=== PATIENT | male | born 1950 | race Caucasian/White ===

== ENCOUNTER 2020-10-30 14:28 | Inpatient (IN) | payer MEDICARE, BC ==
[~2020-10-30] VITALS: Ht 167.6 cm; Wt 62.3 kg
[2020-10-30 15:09] LABS: BASO % 0.3 % (0.0-2.0); EOS # 0.2 (0.0-0.7); EOS % 3.5 % (0-4.0); GRAN # 3.8 (1.4-6.5); GRAN % 60.4 % (42.2-75.2); HEMOGLOBIN 10.8 g/dl (13.5-18.0); LYMPH # 1.2 (1.2-3.4); LYMPH % 18.6 % (20.0-51.0); MEAN CELL VOLUME 110 fl (80.0-100.0); MEAN CORPUSCULAR HEMOGLOBIN 37 pg (27.0-31.0); MEAN CORPUSCULAR HGB CONC 34 g/dl (33.0-37.0); MEAN PLATELET VOLUME 11.3 fl (7.4-10.4); MONO # 1.1 (0.1-0.6); MONO % 16.7 % (1.7-9.3); PLATELET COUNT 142 K/mm3 (130-400); RED BLOOD COUNT 2.89 M/mm3 (4.20-5.60); REDCELL DISTRIBUTION WIDTH-CV 13.7 % (11.5-14.5)
[2020-10-30 15:10] LABS: HEMATOCRIT 31.7 % (42.0-52.0)
[2020-10-30 15:27] LABS: ALANINE AMINOTRANSFERASE 20 U/L (4-49); ALBUMIN 3.7 gm/dL (3.5-5.0); ALKALINE PHOSPHATASE 69 U/L (50-136); ANION GAP 4 mmol/L (7-16); AST,SGOT 49 U/L (15-37); BILIRUBIN,TOTAL 0.6 mg/dL (0.0-1.0); BLOOD UREA NITROGEN 10 mg/dL (9-20); CALCIUM 8.8 mg/dL (8.4-10.2); CARBON DIOXIDE 28 mmol/L (22-30); CHLORIDE 105 mmol/L (98-107); CREATININE, serum 0.74 (0.66-1.25); GLUCOSE 121 mg/dL (74-106); POTASSIUM 4.3 mmol/L (3.4-5.0); SODIUM 138 mmol/L (137-145); TOTAL PROTEIN 7.3 gm/dL (6.4-8.2)
[2020-10-30 15:39] LABS: TROPONIN-I < 0.012 ng/mL (0.000-0.035)
--- NOTE | 2020-10-30 20:48 | NUR ---
Patient arrived to the unit, alert and oriented x 4. Very hungry. Lunch box provided. No pain, nausea or vomiting. Daugher with him.
[2020-10-30] MEDS ORDERED: ULTRAM 50MG TAB50 MG PO (20:58)
[2020-10-30] MEDS ORDERED: NORCO 325 MG-7.1 TAB PO (20:59)
[2020-10-30] MEDS ORDERED: CELEBREX 200MG200 MG PO (21:00)
[2020-10-30] MEDS ORDERED: PEPCID40 MG PO (21:00)
[2020-10-30] MEDS ORDERED: TOPROL XL100 MG PO ×2 (21:02→21:03)
[2020-10-30] MEDS ORDERED: TOPROL XL 50MG50 MG PO (21:04)
[2020-10-30] MEDS ORDERED: ZOCOR 40MG40 MG PO (21:05)
[2020-10-30] MEDS ORDERED: ASPIRIN 32325 MG/TAB PO (21:07)
[2020-10-30 23:46] VITALS: BP 115/57; PULSE 69; TEMP 98.3
[2020-10-31] VITALS (7 sets, daily range): BP systolic 117–125; BP diastolic 57–82; PULSE 67–95; TEMP 98.1–99
--- NOTE | 2020-10-31 04:40 | NUR ---
Patient is awake after VS were taken. Asks for pain medication rating 7 out of 10. [place] provided.
--- NOTE | 2020-10-31 06:20 | NUR ---
Patient has had a calm night. Patient is able to walk from bed to restroom without difficulties. Continues at 3L O2 NC. No further needs at this time. Shift report will be given to day nurse.
--- NOTE | 2020-10-31 06:40 | NUR ---
Bedside report complete, report received from MONSE Chalwa. Pt. sitting up at the edge of the bed. Pt. updated this bid writer would now be his RN for the day. Pt. denies needs at this time. Call light and belongings in reach.
[2020-10-31 06:54] LABS: ANION GAP 6 mmol/L (7-16); BLOOD UREA NITROGEN 11 mg/dL (9-20); CALCIUM 8.5 mg/dL (8.4-10.2); CARBON DIOXIDE 31 mmol/L (22-30); CHLORIDE 103 mmol/L (98-107); CREATININE, serum 0.84 (0.66-1.25); GLUCOSE 102 mg/dL (74-106); MAGNESIUM 1.7 mg/dL (1.6-2.3); POTASSIUM 3.8 mmol/L (3.4-5.0); SODIUM 140 mmol/L (137-145)
[2020-10-31 07:04] LABS: TROPONIN-I < 0.012 ng/mL (0.000-0.035)
--- NOTE | 2020-10-31 10:35 | NUR ---
Pt. progressing w/ plan of care. Pt. instructed to use incentive spirometer and he demonstrated using it successfully. He was able to achieve about 1000ml. Pt.'s supportive daughter at bedside. Pt. reports minimal changes in his breathing today. O2 sat WNL on 3L O2 NC. Scheduled IVF lasix to be given at 1630. This RN spoke to ANJALI Tidwell regarding changing his R hip dressing with a new aquacel dressing today, ANJALI Tidwell agreed of the dressing change. PO Metoprolol was also changed to bedtime as the pt. takes it at home, no PO Metoprolol was given this AM. VSS. Call light and belongings in reach.
--- NOTE | 2020-10-31 13:35 | NUR ---
Initial visit; Patient and family thanked Specimen Accessioner for looking in on him and offering God's blessings.
--- NOTE | 2020-10-31 14:31 | NUR ---
utility maintenance worker met with patient to discuss discharge plan. Patient lives at home alone in [place], [place]. Patient is single with two grown children, Hayder (son, ANGIE [phone]) and Leona (daughter, [place] [phone]). Patient reports to being fully independent on all activities of daily living and uses a cane to assist with mobility. Patient has used O2 during this hospital stay but reports that this is his first time. PCP is Dr. Diane and uses [facility] for medications. Reports no issue affording medications. Patient is unsure if he has a DPOA-HC established but verbalizes that it would be his daughter Leona. Plan is to return home with no concerns at this time. *Discharge plan: Home*
--- NOTE | 2020-10-31 21:00 | NUR ---
PT RESTING IN BED. EVENING MEDICATIONS GIVEN. LUNGS SOUNDS ARE DIMINSHED. DRESSING TO R HIP IS C/D/I. PT DENIES ANY PAIN OR NEEDS AT THIS TIME. RT TITRATED OXYGEN DOWN TO 1L. WILL CONINTUE TO MONITOR.
[2020-10-31 23:49] LABS: FOLATE (FOLIC ACID) 17.4 ng/mL (2.0-20.0)
[2020-11-01] VITALS (11 sets, daily range): BP systolic 90–114; BP diastolic 57–79; PULSE 65–115; TEMP 98.5–98.6
--- NOTE | 2020-11-01 07:06 | NUR ---
PT OFF THE UNIT AT THIS TIME FOR PROCEDURE.
--- NOTE | 2020-11-01 07:15 | NUR ---
REPORT RECEIVED FROM MONSE ROWLEY. PT DOWN FOR ARMANDO SCAN.
[2020-11-01 07:20] LABS: BASO % 0.6 % (0.0-2.0); EOS # 0.2 (0.0-0.7); EOS % 2.5 % (0-4.0); GRAN # 4.4 (1.4-6.5); GRAN % 63.6 % (42.2-75.2); HEMOGLOBIN 11.4 g/dl (13.5-18.0); LYMPH # 1.1 (1.2-3.4); LYMPH % 16.5 % (20.0-51.0); MEAN CELL VOLUME 113 fl (80.0-100.0); MEAN CORPUSCULAR HEMOGLOBIN 38 pg (27.0-31.0); MEAN CORPUSCULAR HGB CONC 34 g/dl (33.0-37.0); MEAN PLATELET VOLUME 11.4 fl (7.4-10.4); MONO # 1.1 (0.1-0.6); MONO % 16.5 % (1.7-9.3); PLATELET COUNT 170 K/mm3 (130-400); RED BLOOD COUNT 2.99 M/mm3 (4.20-5.60); REDCELL DISTRIBUTION WIDTH-CV 13.7 % (11.5-14.5)
[2020-11-01 07:23] LABS: HEMATOCRIT 33.7 % (42.0-52.0)
[2020-11-01 07:46] LABS: CREATININE, serum 0.94 (0.66-1.25); MAGNESIUM 1.7 mg/dL (1.6-2.3); POTASSIUM 3.7 mmol/L (3.4-5.0)
--- NOTE | 2020-11-01 09:47 | NUR ---
PT DOWN FOR ARMANDO SCAN
--- NOTE | 2020-11-01 10:03 | NUR ---
Alert Dr. Moore that patient went in and out of bigemeny during stress test.
--- NOTE | 2020-11-01 10:46 | NUR ---
PT BACK FROM [facility], LYING IN BED RESTING, DAUGHTER IN ROOM, PT HAS NO NEEDS/REQUESTS AT THIS TIME. CALL [facility] IN [place]
[2020-11-01] MEDS ORDERED: PROVENTIL0.09 MG/A1 IH (12:28)
[2020-11-01] MEDS ORDERED: FLONASE NASAL S16 GM NS (12:29)
[2020-11-01] MEDS ORDERED: OXYGEN NASAL.CANN (13:13)
--- NOTE | 2020-11-01 13:38 | NUR ---
The patient's RN and RT notified MARIA LUISA that the patient qualified for 1 liter of oxygen. MARIA LUISA met with the patient and his family member and informed him of the different DME companies. The patient chose [facility]. MARIA LUISA contacted and faxed the oxygen order to Beatriz at [facility]. Awaiting delivery of oxygen.
--- NOTE | 2020-11-01 14:51 | NUR ---
REVIEWED DISCHARGE INSTRUCTIONS WITH PATIENT. IV REMOVED. I WALKED PT OUT. SENT HOME WITH HOSPITAL OXYGEN. FAMILY AGREED TO RETURN WITHIN A FEW DAYS.
--- NOTE | 2020-11-01 14:53 | NUR ---
The patient and her daughter decided to citrus picker the oxygen from [facility]. SW notified Kalpana with [employer] [employer]. No additional needs at this time.
== END 2020-11-01 14:52 | disposition home or self-care (01) | DRG 291 ==
LOC: COL.ER 14:28 → MEDICAL 16:11 → EDBEDREQ 19:12 → MEDICAL 23:00
PROVIDERS: Emergency Medicine; Physician Assistant; ADMIT Internal Medicine
DX: I11.0 Hypertensive heart disease with heart failure (principal); J96.01 Acute respiratory failure with hypoxia; E87.3 Alkalosis; I25.10 Atherosclerotic heart disease of native coronary artery without angina pectoris; Z66 Do not resuscitate; D64.9 Anemia, unspecified; J44.9 Chronic obstructive pulmonary disease, unspecified; I50.33 Acute on chronic diastolic (congestive) heart failure; Z20.822 Contact with and (suspected) exposure to COVID-19; Z96.641 Presence of right artificial hip joint; F17.210 Nicotine dependence, cigarettes, uncomplicated; Z95.5 Presence of coronary angioplasty implant and graft
CPT/HCPCS: 99222-AI; 99232-AI; 99239; A9284; A9500; J1650; J1940; J2785; J7030; Q9967